=== PATIENT | male | born 1940 | race Caucasian/White ===

== ENCOUNTER 2017-08-04 15:45 | Inpatient (IN) | payer OTHER, MEDICAID ==
[~2017-08-04] VITALS: Ht 180.3 cm; Wt 76.7 kg
[2017-08-04 20:03] VITALS: BP_SYST 136
[2017-08-04] MEDS ORDERED: FLU VACC QS 2017-18(36MOS+)/PF 0.5 ML/SYR SYRINGE I.M. PRN (20:30)
[2017-08-04] MEDS ORDERED: DOCU-144 PO (21:45)
[2017-08-04] MEDS ORDERED: LIP10 PO (21:45)
[2017-08-04] MEDS ORDERED: MULT-300 PO (21:45)
[2017-08-04] MEDS ORDERED: LOVI80 SQ (21:45)
[2017-08-04] MEDS ORDERED: METO25TA6 PO (21:45)
[2017-08-04] MEDS ORDERED: NA P118E RC (21:45)
[2017-08-04] MEDS ORDERED: DIVA125C4 PO (21:45)
[2017-08-04] MEDS ORDERED: ROCPM1 IV (21:45)
[2017-08-04] MEDS ORDERED: LORA-259 IVP (21:45)
[2017-08-04] MEDS ORDERED: ASPI-859 PO (21:45)
[2017-08-04] MEDS ORDERED: MEMA10TA12 PO (21:45)
[2017-08-04] MEDS ORDERED: LACT1CAP72 PO (21:45)
[2017-08-04] MEDS ORDERED: ACET-2165 PO (21:45)
[2017-08-04] MEDS ORDERED: PEG15DRO5 OP (21:45)
[2017-08-04] MEDS ORDERED: MAGN400O4 PO (21:45)
[2017-08-04] MEDS ORDERED: HYDR-1189 PO (21:45)
[2017-08-04] MEDS ORDERED: ZOLPIDEM TARTRATE 5 MG TABLET PO PRN (22:00)
[2017-08-04] MEDS: NORMAL SALINE 5 ML DISP.SYRIN IVF SCH (22:00)
[2017-08-04] MEDS ORDERED: ONDANSETRON HCL 4 MG/2 ML VIAL IVP PRN (22:00)
[2017-08-04] MEDS ORDERED: cefTRIAXone 1 GM IVPB PREMIX 50 ML IV SCH (22:15)
[2017-08-04] MEDS ORDERED: MILK OF MAGNESIA 30 ML UDC PO PRN (22:15)
[2017-08-04] MEDS ORDERED: LORazepam 1 MG TABLET JT PRN (22:15)
[2017-08-04] MEDS ORDERED: ACETAMINOPHEN 325 MG TABLET PO PRN (22:15)
[2017-08-04] MEDS ORDERED: LORazepam 2 MG/ML VIAL IVP PRN (22:15)
[2017-08-04] MEDS ORDERED: HYDROcodone/ACETAMIN 5-325 MG TAB (NORCO/ VICODIN) PO PRN (22:15)
[2017-08-04] MEDS ORDERED: NA PHOS,M-B/NA PHOS,DI-BA 118 ML (FLEET ENEMA) RC PRN (22:15)
[2017-08-04] MEDS ORDERED: ATII2 INJ (22:18)
[2017-08-04] MEDS ORDERED: VANCOMYCIN HCL 1000 MG/VIAL IV ONE (22:41)
[2017-08-04] MEDS ORDERED: VANCOMYCIN HCL 500 MG/VIAL IV ONE (22:41)
[2017-08-04] MEDS: D5/0.45 NS 1,000 ML IV SCH (23:50)
[2017-08-04 23:54] VITALS: BP_SYST 164
[2017-08-05] MEDS: NITROGLYCERIN 1 INCH (GM) OINT. TP SCH ×5 (00:28→23:38)
[2017-08-05] MEDS: VANCOMYCIN HCL 1,500 MG in NS 250 ML IV SCH ×3 (00:30→21:46)
[2017-08-05] MEDS: LORazepam 2 MG/ML VIAL IVP PRN ×2 (00:51→18:14)
[2017-08-05 03:45] VITALS: BP_SYST 151
[2017-08-05] MEDS: NORMAL SALINE 5 ML DISP.SYRIN IVF SCH ×3 (06:00→22:19)
[2017-08-05 06:34] LABS: BASOPHILS % (AUTO) 0.3 % (0.0-2.0); EOSINOPHILS % (AUTO) 0.1 % (0.0-4.0); HEMATOCRIT 36.8 % (36-54); HEMOGLOBIN 12.1 g/dL (14.0-18.0); LYMPHOCYTES # (AUTO) 0.7 K/uL (1.0-5.5); LYMPHOCYTES % (AUTO) 4.4 % (20.5-51.5); MEAN CORPUSCULAR HEMOGLOBIN 30 pg (27-31); MEAN CORPUSCULAR HGB CONC 33 % (32-36); MEAN CORPUSCULAR VOLUME 91 fL (79.0-98.0); MONOCYTES # (AUTO) 1.3 K/uL (0.0-1.0); MONOCYTES % (AUTO) 7.9 % (1.7-9.3); NEUTROPHILS % (AUTO) 87.3 % (40.0-70.0); PLATELET COUNT (AUTO) 241 K/uL (130-430); RED BLOOD CELL COUNT(AUTO) 4.07 MIL/uL (4.2-6.2); RED CELL DISTRIBUTION WIDTH 13.7 % (9.0-15.0)
[2017-08-05 06:47] LABS: ALANINE AMINOTRANSFERASE 14 U/L (12-78); ALBUMIN 2.8 g/dL (3.4-4.8); ANION GAP 5 (5-15); ASPARTATE AMINOTRANSFERASE 16 U/L (10-37); CALCIUM 9.5 mg/dL (8.4-11.0); CHLORIDE 108 mmol/L (98-107); CREATININE 0.75 mg/dL (0.55-1.30); GLUCOSE 149 mg/dL (70-99); SODIUM SERUM 141 mmol/L (136-145); TOTAL BILIRUBIN 0.9 mg/dL (0.0-1.0); UREA NITROGEN, BLOOD 20 mg/dL (8-21)
[2017-08-05 07:40] VITALS: BP_SYST 147
[2017-08-05] MEDS: ASPIRIN 81 MG TABLET(ECOTRIN) PO SCH (09:00)
[2017-08-05] MEDS: MEMANTINE HCL 5 MG TABLET PO SCH (09:00)
[2017-08-05] MEDS ORDERED: ENOXAPARIN SODIUM 80 MG/0.8 ML SYRINGE SQ SCH (09:00)
[2017-08-05] MEDS: DOCUSATE SODIUM 100 MG CAPSULE PO SCH ×2 (09:00→21:36)
[2017-08-05] MEDS ORDERED: QUEtiapine FUMARATE 25 MG TABLET PO SCH (09:00)
[2017-08-05] MEDS: DIVALPROEX SODIUM 125 MG CAP.(DEPAKOTE SPRINKLE) PO SCH ×3 (09:00→21:38)
[2017-08-05] MEDS: METOPROLOL TARTRATE 25 MG TABLET PO SCH ×3 (09:00→21:46)
[2017-08-05] MEDS: CEFTRIAXONE SOD 1 GM/ DEXTROSE,ISO 50 ML PREMIX IV SCH (09:44)
[2017-08-05] MEDS ORDERED: KCL 20 mEq in 100 mL (PREMIX) 100 ML IV ONE (09:45)
[2017-08-05 12:01] VITALS: BP_SYST 147
[2017-08-05] MEDS: D5/0.45 NS 1,000 ML IV SCH (14:13)
[2017-08-05] MEDS: QUEtiapine FUMARATE 25 MG TABLET PO SCH ×2 (14:19→21:39)
[2017-08-05 16:02] VITALS: BP_SYST 139
[2017-08-05 20:07] VITALS: BP_SYST 152
[2017-08-05] MEDS: ATORVASTATIN 10 MG TABLET PO SCH (21:39)
[2017-08-05 23:37] VITALS: BP_SYST 118
[2017-08-06] MEDS: D5/0.45 NS 1,000 ML IV SCH ×2 (02:16→19:36)
[2017-08-06] MEDS: LORazepam 2 MG/ML VIAL IVP PRN (03:14)
[2017-08-06 03:37] VITALS: BP_SYST 152
[2017-08-06] MEDS: NITROGLYCERIN 1 INCH (GM) OINT. TP SCH ×3 (06:11→18:28)
[2017-08-06] MEDS: NORMAL SALINE 5 ML DISP.SYRIN IVF SCH ×3 (06:11→22:20)
[2017-08-06 06:34] LABS: BASOPHILS # (AUTO) 0.1 K/uL (0.0-0.2); BASOPHILS % (AUTO) 0.5 % (0.0-2.0); EOSINOPHILS # (AUTO) 0.3 K/uL (0.0-0.4); EOSINOPHILS % (AUTO) 2.5 % (0.0-4.0); HEMATOCRIT 38.2 % (36-54); HEMOGLOBIN 12.3 g/dL (14.0-18.0); LYMPHOCYTES # (AUTO) 0.9 K/uL (1.0-5.5); LYMPHOCYTES % (AUTO) 6.8 % (20.5-51.5); MEAN CORPUSCULAR HEMOGLOBIN 29 pg (27-31); MEAN CORPUSCULAR HGB CONC 32 % (32-36); MEAN CORPUSCULAR VOLUME 91 fL (79.0-98.0); MONOCYTES # (AUTO) 1.4 K/uL (0.0-1.0); MONOCYTES % (AUTO) 9.9 % (1.7-9.3); NEUTROPHILS # (AUTO) 11.3 K/uL (1.8-7.7); NEUTROPHILS % (AUTO) 80.3 % (40.0-70.0); PLATELET COUNT (AUTO) 259 K/uL (130-430); RED BLOOD CELL COUNT(AUTO) 4.19 MIL/uL (4.2-6.2); RED CELL DISTRIBUTION WIDTH 13.9 % (9.0-15.0)
[2017-08-06 06:47] LABS: ALANINE AMINOTRANSFERASE 17 U/L (12-78); ALBUMIN 2.6 g/dL (3.4-4.8); ANION GAP 4 (5-15); ASPARTATE AMINOTRANSFERASE 18 U/L (10-37); CHLORIDE 110 mmol/L (98-107); CREATININE 0.74 mg/dL (0.55-1.30); GLUCOSE 132 mg/dL (70-99); POTASSIUM 3.3 mmol/L (3.5-5.1); SODIUM SERUM 142 mmol/L (136-145); TOTAL BILIRUBIN 0.6 mg/dL (0.0-1.0); UREA NITROGEN, BLOOD 26 mg/dL (8-21)
[2017-08-06 08:08] VITALS: BP_SYST 155
[2017-08-06] MEDS: CEFTRIAXONE SOD 1 GM/ DEXTROSE,ISO 50 ML PREMIX IV SCH (08:51)
[2017-08-06] MEDS: DOCUSATE SODIUM 100 MG CAPSULE PO SCH ×2 (09:00→20:44)
[2017-08-06] MEDS: ASPIRIN 81 MG TABLET(ECOTRIN) PO SCH (09:00)
[2017-08-06] MEDS: METOPROLOL TARTRATE 25 MG TABLET PO SCH ×2 (09:02→20:45)
[2017-08-06] MEDS: MEMANTINE HCL 5 MG TABLET PO SCH (09:02)
[2017-08-06] MEDS: DIVALPROEX SODIUM 125 MG CAP.(DEPAKOTE SPRINKLE) PO SCH ×2 (09:02→20:44)
[2017-08-06] MEDS: QUEtiapine FUMARATE 25 MG TABLET PO SCH ×3 (09:02→20:44)
[2017-08-06] MEDS: VANCOMYCIN HCL 1,500 MG in NS 250 ML IV SCH (10:00)
[2017-08-06 12:01] VITALS: BP_SYST 155
[2017-08-06] MEDS ORDERED: KCL 10 mEq in 50 mL (PREMIX) 50 ML IV ONE (14:00)
[2017-08-06] MEDS ORDERED: BALSAM PERU/CASTOR OIL 60 GM OINT...G. TP PRN (14:15)
[2017-08-06 16:14] VITALS: BP_SYST 157
[2017-08-06 19:30] VITALS: BP_SYST 143
[2017-08-06] MEDS: ATORVASTATIN 10 MG TABLET PO SCH (20:44)
[2017-08-06] MEDS: VANCOMYCIN HCL 1,000 MG in NS 250 ML IV SCH (22:19)
[2017-08-06 23:37] VITALS: BP_SYST 134
[2017-08-07] MEDS: NITROGLYCERIN 1 INCH (GM) OINT. TP SCH ×5 (00:18→23:51)
[2017-08-07 03:39] VITALS: BP_SYST 140
[2017-08-07] MEDS: NORMAL SALINE 5 ML DISP.SYRIN IVF SCH ×5 (06:00→21:11)
[2017-08-07 08:43] VITALS: BP_SYST 163
[2017-08-07] MEDS: D5/0.45 NS 1,000 ML IV SCH ×2 (08:48→23:51)
[2017-08-07] MEDS: CEFTRIAXONE SOD 1 GM/ DEXTROSE,ISO 50 ML PREMIX IV SCH (08:49)
[2017-08-07] MEDS: METOPROLOL TARTRATE 25 MG TABLET PO SCH ×2 (08:51→21:10)
[2017-08-07] MEDS: MEMANTINE HCL 5 MG TABLET PO SCH (08:52)
[2017-08-07] MEDS: QUEtiapine FUMARATE 25 MG TABLET PO SCH ×3 (08:52→21:09)
[2017-08-07] MEDS: ASPIRIN 81 MG TABLET(ECOTRIN) PO SCH (08:52)
[2017-08-07] MEDS: DOCUSATE SODIUM 100 MG CAPSULE PO SCH ×2 (08:52→21:09)
[2017-08-07] MEDS: DIVALPROEX SODIUM 125 MG CAP.(DEPAKOTE SPRINKLE) PO SCH ×2 (08:52→21:10)
[2017-08-07] MEDS: BALSAM PERU/CASTOR OIL 60 GM OINT...G. TP SCH (09:28)
[2017-08-07] MEDS: VANCOMYCIN HCL 1,000 MG in NS 250 ML IV SCH ×2 (10:14→21:09)
[2017-08-07 12:05] VITALS: BP_SYST 141
[2017-08-07 16:00] VITALS: BP_SYST 129
[2017-08-07 20:00] VITALS: BP_SYST 127
[2017-08-07] MEDS: ATORVASTATIN 10 MG TABLET PO SCH (21:09)
[2017-08-07 23:17] VITALS: BP_SYST 122
[2017-08-08 03:20] VITALS: BP_SYST 132
[2017-08-08] MEDS: NITROGLYCERIN 1 INCH (GM) OINT. TP SCH ×2 (05:40→11:27)
[2017-08-08] MEDS: NORMAL SALINE 5 ML DISP.SYRIN IVF SCH ×2 (05:41→14:00)
[2017-08-08 06:03] LABS: BASOPHILS # (AUTO) 0.1 K/uL (0.0-0.2); BASOPHILS % (AUTO) 0.4 % (0.0-2.0); EOSINOPHILS # (AUTO) 0.1 K/uL (0.0-0.4); EOSINOPHILS % (AUTO) 0.9 % (0.0-4.0); HEMATOCRIT 32.7 % (36-54); HEMOGLOBIN 10.5 g/dL (14.0-18.0); LYMPHOCYTES # (AUTO) 0.8 K/uL (1.0-5.5); LYMPHOCYTES % (AUTO) 6.1 % (20.5-51.5); MEAN CORPUSCULAR HEMOGLOBIN 29 pg (27-31); MEAN CORPUSCULAR HGB CONC 32 % (32-36); MEAN CORPUSCULAR VOLUME 91 fL (79.0-98.0); MONOCYTES # (AUTO) 1.7 K/uL (0.0-1.0); MONOCYTES % (AUTO) 13.4 % (1.7-9.3); NEUTROPHILS # (AUTO) 10.4 K/uL (1.8-7.7); NEUTROPHILS % (AUTO) 79.2 % (40.0-70.0); PLATELET COUNT (AUTO) 263 K/uL (130-430); RED BLOOD CELL COUNT(AUTO) 3.58 MIL/uL (4.2-6.2); RED CELL DISTRIBUTION WIDTH 13.7 % (9.0-15.0); WHITE BLOOD COUNT (AUTO) 13.1 K/uL (4.8-10.8)
[2017-08-08 06:37] LABS: ALANINE AMINOTRANSFERASE 18 U/L (12-78); ALBUMIN 1.9 g/dL (3.4-4.8); ANION GAP 7 (5-15); ASPARTATE AMINOTRANSFERASE 17 U/L (10-37); CHLORIDE 110 mmol/L (98-107); CREATININE 0.79 mg/dL (0.55-1.30); GLUCOSE 145 mg/dL (70-99); POTASSIUM 3.6 mmol/L (3.5-5.1); SODIUM SERUM 144 mmol/L (136-145); TOTAL BILIRUBIN 0.6 mg/dL (0.0-1.0); UREA NITROGEN, BLOOD 30 mg/dL (8-21)
[2017-08-08 08:21] VITALS: BP_SYST 163
[2017-08-08] MEDS: CEFTRIAXONE SOD 1 GM/ DEXTROSE,ISO 50 ML PREMIX IV SCH (08:26)
[2017-08-08] MEDS: DIVALPROEX SODIUM 125 MG CAP.(DEPAKOTE SPRINKLE) PO SCH (08:26)
[2017-08-08] MEDS: ASPIRIN 81 MG TABLET(ECOTRIN) PO SCH (08:26)
[2017-08-08] MEDS: DOCUSATE SODIUM 100 MG CAPSULE PO SCH (08:27)
[2017-08-08] MEDS: METOPROLOL TARTRATE 25 MG TABLET PO SCH (08:27)
[2017-08-08] MEDS: QUEtiapine FUMARATE 25 MG TABLET PO SCH ×2 (08:27→14:44)
[2017-08-08] MEDS: BALSAM PERU/CASTOR OIL 60 GM OINT...G. TP SCH (08:28)
[2017-08-08] MEDS: MEMANTINE HCL 5 MG TABLET PO SCH (08:28)
[2017-08-08 10:32] VITALS: BP_SYST 132
[2017-08-08] MEDS: VANCOMYCIN HCL 1,000 MG in NS 250 ML IV SCH (11:07)
[2017-08-08 12:37] VITALS: BP_SYST 129
[2017-08-08] MEDS: LORazepam 2 MG/ML VIAL IVP PRN (13:20)
[2017-08-08 16:00] VITALS: BP_SYST 102
== END 2017-08-08 15:55 | disposition short-term general hospital (02) | DRG 157 ==
LOC: UNDOADMIN 15:45 → SMU 15:45 → STU 19:54 → SMU 08-07 19:42
PROVIDERS: ADMIT Internal Medicine; ATTEND Internal Medicine
DX: S02.652A Fracture of angle of left mandible, initial encounter for closed fracture (principal); E43 Unspecified severe protein-calorie malnutrition; I48.91 Unspecified atrial fibrillation; L02.415 Cutaneous abscess of right lower limb; L03.115 Cellulitis of right lower limb; M86.8X8 Other osteomyelitis, other site; G30.9 Alzheimer's disease, unspecified; E11.9 Type 2 diabetes mellitus without complications; F02.80 Dementia in other diseases classified elsewhere, unspecified severity, without behavioral disturbance, psychotic disturbance, mood disturbance, and anxiety; E78.5 Hyperlipidemia, unspecified; I10 Essential (primary) hypertension; S80.11XA Contusion of right lower leg, initial encounter; M19.90 Unspecified osteoarthritis, unspecified site; M26.69 Other specified disorders of temporomandibular joint; S02.601A Fracture of unspecified part of body of right mandible, initial encounter for closed fracture; E87.6 Hypokalemia; F29 Unspecified psychosis not due to a substance or known physiological condition; W19.XXXA Unspecified fall, initial encounter; Y92.128 Other place in nursing home as the place of occurrence of the external cause; Y93.89 Activity, other specified; Y99.8 Other external cause status; Z68.23 Body mass index [BMI] 23.0-23.9, adult
CPT/HCPCS: 36415; 71010; 78305-TC; 80053; 80164-TC; 80202-TC; 82962; 85025; 87070-TC; 87081; A9503; J0696; J2060; J3370; J3480; J7050